=== PATIENT | male | born 1945 | race Caucasian/White ===

== ENCOUNTER 2019-02-10 09:41 | Inpatient (IN) | payer MEDICARE, SELFPAY ==
[2019-02-10] VITALS (10 sets, daily range): BP systolic 72–127; BP diastolic 38–66; PULSE 50–79; RESP 14–18; TEMP 36.5–36.7; O2SAT 90–100; BMI 34.9
--- NOTE | ~2019-02-10 | XR_ITS ---
EXAMINATION: XR chest 1V portable EXAM DATE: 02/10/2019 14:13 INDICATION: Cough. TECHNIQUE: Frontal and lateral projections of the chest obtained and reviewed. Correlation is made to CT 01/19/2019. FINDINGS: There are small amount of right infrahilar airspace disease, could be bronchopneumonia. Pl ease clinically correlate. The lungs are otherwise clear. There are no pleural effusions. The cardi omediastinal silhouette is within normal limits. There is no pneumothorax suspected. The bones and soft tissues are unremarkable. IMPRESSION: No acute cardiopulmonary findings. Reviewed, dictated and finalized at location A. R FAB TECHNICIAN
--- NOTE | ~2019-02-10 | CT_ITS ---
EXAMINATION: CT abdomen pelvis wo con DATE: 02/10/2019 13:50 INDICATION: Nausea and vomiting. TECHNIQUE: Computed tomography (CT) of the abdomen and pelvis was performed without intravenous contr ast. Automated exposure control and iterative reconstruction technique were employed. The dose-length product was 1293.80 mGy-cm. COMPARISON: CT abdomen and pelvis 03/17/2012, chest CT 09/11/2018 FINDINGS: The visualized portions of the lung bases demonstrate mild atelectasis. There are groundgla ss and airspace opacities in right middle lobe and right lower lobe, consistent with pneumonia. A pancho cified left lung nodule is consistent with old granulomatous disease. No pleural effusion. The heart size is normal. There are coronary artery calcifications. No pericardial effusion. Calcifications in the liver and spleen are consistent with old granulomatous disease. The gallbladder, pancreas, and ri ght adrenal gland are normal. There is a chronic 2.1 cm mass in left adrenal gland, consistent with a n adenoma. The kidneys are normal. There is no urolithiasis. The prostate is moderately enlarged. The re are no dilated loops of bowel. The appendix is normal. There is a 4.2 cm fusiform infrarenal aorti c aneurysm. There are no pathologically enlarged lymph nodes. There is no free intraperitoneal fluid. There is a healing anterior left sixth rib fracture. There is mild thoracolumbar spondylosis. IMPRESSION: 1. Mild pneumonia involving right middle lobe and right lower lobe. 2. 4.2 cm fusiform infrarenal aortic aneurysm. Reviewed, dictated and finalized at location A. STICS ASSISTANT
--- NOTE | 2019-02-10 09:52 | ECG_ITS ---
Measurements Intervals Dustin Rate: 53 P: 86 WY: 177 QRS: 79 QRSD: 133 T: 8 QT: 513 QTc: 482 Interpretive Statements SINUS BRADYCARDIA INTRAVENTRICULAR CONDUCTION DELAY BORDERLINE ST-T WAVE ABNORMALITY- INFERIOR LEADS PROLONGED QT INTERVAL ABNORMAL ECG Electronically Signed On 02-10-2019 10:56:40 GRADE CHECKER by Jhonny Davies D.O.
[2019-02-10] MEDS: SODIUM CHLORIDE 0.9% IV 1,000 ML 999 ML IV CONT ×2 (11:06→14:00)
--- NOTE | 2019-02-10 11:07 | PC.NURSE ---
NS 1 L BEL VO per Javy Chavez NP
--- NOTE | 2019-02-10 11:09 | PC.NURSE ---
pt. instructed not to get out of bed; rational given
[2019-02-10] MEDS: ONDANSETRON INJ 4 MG/2 ML VIAL IV PUSH (11:19)
[2019-02-10 11:27] LABS: Basophils Percent Auto 0.6 % (0.2-1.2); Eosinophils Absolute Auto 0.4 K/mm3 (0-0.3); Eosinophils Percent Auto 5.6 % (0-4.4); Hematocrit 40.5 % (42.0-52.0); Hemoglobin 12.9 g/dL (14.0-18.0); Immature Granulocyte Absolute 0.02 K/mm3 (0.00-0.031); Immature Granulocyte Percent A 0.3 % (0-0.5); Lymphocytes Absolute Auto 1.05 K/mm3 (0.9-3.2); Lymphocytes Percent Auto 16.3 % (18.3-44.2); Mean Corpuscular HGB Conc 31.9 g/dl (32-36); Mean Corpuscular Hemoglobin 27.3 pg (26-34); Mean Corpuscular Volume 85.8 fl (80-100); Mean Platelet Volume 11.6 fl (7.4-10.4); Monocytes Absolute Auto 0.6 K/mm3 (0.1-0.6); Monocytes Percent Auto 8.7 % (2.6-8.5); Neutrophils Absolute Auto 4.4 K/mm3 (1.3-6.7); Neutrophils Percent Auto 68.5 % (45.5-73.1); Platelet Count Result 172 k/mm3 (150-375); Red Blood Count 4.72 M/mm3 (4.6-6.20); Red Cell Distribution Width 13.3 % (11.5-14.5); White Blood Count 6.4 K/mm3 (4.5-10.0)
[2019-02-10 11:41] LABS: Alanine Aminotransferase 15 U/L (4-50); Albumin Level 4.3 g/dL (3.5-5.1); Alkaline Phosphatase 78 U/L (38-126); Aspartate Amino Transferase 26 U/L (17-59); Bilirubin,Total 0.4 mg/dL (0.2-1.3); Blood Urea Nitrogen 85 mg/dL (9-20); Calcium 8.8 mg/dL (8.4-10.2); Carbon Dioxide 35 mmol/L (22-30); Chloride 82 mmol/L (98-107); Estimated Glomerular Filt Rate 10; Glucose 115 mg/dL (75-110); Lipase 205 U/L (23-300); Potassium 3.4 mmol/L (3.4-5.0); Sodium 132 mmol/L (137-145)
--- NOTE | 2019-02-10 12:35 | ED.GENADULT ---
HPI - General Adult General Chief complaint: Unspecified <PARIS Bolanos - Last Filed: 02/10/19 14:27> Stated complaint: multiple complaints <PARIS Bolanos - Last Filed: 02/10/19 14:27> Time Seen by Provider: 02/10/19 11:02 <PARIS Bolanos - Last Filed: 02/10/19 14:27> History of Present Illness HPI narrative: Patient is a 73-year-old male who presents with multiple complaints. Patient reports nausea, vomiting, diarrhea for the past 3 weeks since discharge from [facility]. Patient reports he is unable to keep food or fluids down and decreased p.o. intake. He reports dehydration. He also reports dizziness and lightheaded intermittently. Patient reports discussing this with his PCP and was supposed to be set up with GI consult but has not at this time. Patient is hypotensive upon arrival, pale and cool. He denies taking erjz-rhh-xfslyuf medications for symptom relief. <PARIS Bolanos - Last Filed: 02/10/19 14:27> MD complaint: nausea, vomiting and diarrhea, intermittent dizziness, hypotension <PARIS Bolanos - Last Filed: 02/10/19 14:27> Onset (ago): week(s) (3) <PARIS Bolanos - Last Filed: 02/10/19 14:27> Associated symptoms: loss of appetite and weakness <PARIS Bolanos - Last Filed: 02/10/19 14:27> Treatments prior to arrival: none <PARIS Bolanos - Last Filed: 02/10/19 14:27> Related Data Home medications: Home Medications Medication Instructions Recorded Confirmed aspirin 81 mg tablet,delayed 81 mg PO DAILY 12/31/18 01/19/19 release krill 300 mg-omega 3 90 mg-dha 24 1 cap PO DAILY 12/31/18 01/19/19 mg-epa 50 uz-cvfatoq-yzjvd capsule atorvastatin 10 mg PO HS 01/19/19 01/19/19 doxazosin 8 mg PO HS 01/19/19 01/19/19 kbocnnlqbcq-wkxmzmrtg-twcqudat 1 ea INHALATION DAILY 01/19/19 01/19/19 [Trelegy Ellipta] vit A,C and K-nhrvsc-hkamcxrd 1 mg PO DAILY 01/19/19 01/19/19 [Healthy Eyes] amlodipine 5 mg tablet 5 mg PO DAILY tablet 02/02/19 02/02/19 <PARIS Bolanos - Last Filed: 02/10/19 14:27> Allergies/adverse reactions: Allergies Allergy/AdvReac Type Severity Reaction Status Date / Time Contrast Media Allergy Mild Unknown Uncoded 01/19/19 12:52 <PARIS Bolanos - Last Filed: 02/10/19 14:27> Review of Systems Review of Systems: Narrative: CONSTITUTIONAL: Denies fever, chills, or sweats. Reports generalized weakness EYES: Denies visual changes, redness, or discharge. ENT: Denies rhinorrhea, congestion, sore throat, or otalgia. CARDIOVASCULAR: Denies chest pain, palpitations, or edema. RESPIRATORY: Denies cough or dyspnea. GASTROINTESTINAL: Denies abdominal pain, reports nausea, vomiting, and diarrhea x3 weeks. GENITOURINARY: Denies dysuria or hematuria. SKIN: Denies rash or itching. MUSCULOSKELETAL: Denies back pain, joint pain, or myalgia. NEUROLOGIC: Denies headache, numbness, reports intermittent dizziness and weakness. PSYCHIATRIC: Denies anxiety or depression. <PARIS Bolanos - Last Filed: 02/10/19 14:27> [facility] Past Medical History Medical History: Medical History AAA (abdominal aortic aneurysm) Angina at rest Arthritis Asthma Back pain CAD (coronary artery disease) History of 1 cardiac stent distal RCA 2004 Carotid artery disease Carotid ultrasound 10/15/2018. Doppler suggests stenosis between 50 and 79%. Minimal plaquing on the left. Antegrade vertebral flow bilaterally. DM2 (diabetes mellitus, type 2) Hyperlipidemia Hypertension Kidney stones Passed a kidney stone on his own Myocardial infarct As 1 cardiac catheterization with 1 stent Peripheral artery disease Patient is to have stents in the near future. Pre-diabetes Ulcer UTI (urinary tract infection) <PARIS Bolanos - Last Filed: 02/10/19 14:27> Surgical History Surgical History: Surgical History (Reviewed 01/13
[2019-02-10 13:49] LABS: INR 1.1; Partial Thromboplastin Time 29.1 SECONDS (22.3-36.8); Prothrombin Time 13.8 Seconds (11.1-14.7)
[2019-02-10 15:17] LABS: Lactic Acid Reflex 0.7 mmol/L (0.7-2.1)
[2019-02-10 15:24] LABS: Add Urine Microscopic? YES; Appearance Urine Clear (Clear); Bilirubin Urine Negative (Negative); Blood Urine 1+ (Negative); Color Urine Yellow (Yellow); Glucose Urine UA Negative (Negative); Ketones Urine Negative (Negative); Leukocyte Esterase Ur Negative LEU/UL (Negative); Nitrate Urine Negative (Negative); Protein Urine 1+ mg/dL (Negative); RBC Urine 0-2 /hpf (0-2); Specific Grav Ur 1.016 (1.001-1.035); Squamous Epithelial Cell Urine Few /hpf (Few); Urobilinogen Urine Negative mg/dL (<2.0); WBC Urine 0-3 /hpf
[2019-02-10] MEDS: SODIUM CHLORIDE 0.9% IV 1,000 ML 125 ML IV CONT (16:21)
--- NOTE | 2019-02-10 17:13 | ADMGEN ---
This patient, Adán Lazaro, was admitted to [facility] Surg Room 312-01. Patient/family oriented to hospital policies and general routines including ID bracelet, bed and alarms, visiting hours, pain management, procedures, bathroom and other care routines, personal items, smoking policy, room service/diet, and visiting hours. Valuables list has been completed. Information on how to activate the Rapid Response Team has been discussed. Patient/Family are encouraged to report perceived risks to care and to ask questions if they do not understand what they are told or what they should do.
--- NOTE | 2019-02-10 18:11 | PM.CNNEP ---
Assessment and Plan Assessment and plan (1) Acute renal failure: Code(s): N17.9 - Acute kidney failure, unspecified Status: Acute Assessment and Plan: The patient has acute kidney injury. From 1.5 on the 10th of this month to 5.7 today. He has had nausea vomiting and diarrhea for the past 2 or 3 weeks. He has not held anything down. So I suspect that he is dehydrated. We discussed how long it took him to finally come get medical attention. He did not take any nonsteroidal anti-inflammatory agents. He did continue his valsartan which can enhance the rise in creatinine from any level of dehydration. His blood pressure is also somewhat low which would also be a contributing factor to the renal failure. He does have a history of kidney stones and so could have passed 1 and it could of lodged and blocked 1 kidney however he does not have any symptoms of this. In addition the CT scan did not show stones. He is on 2 new medications, clopidogrel and Sotalol but neither of these cause renal failure unless this is some sort of allergic reaction. However he does not have a rash or fever. And finally his CT scan shows pneumonia so this could be contributing to renal failure as well. So at this point I am going to get urine electrolytes and eosinophils. We will check a CBC with differential. He will continue his IV fluids. HIS Sotalol will have to be adjusted to be given every other day. This has not been prescribed however if it does it should be Q 48 hours. His valsartan should be held. (2) CKD (chronic kidney disease) stage 3, GFR 30-59 ml/min: Code(s): N18.3 - Chronic kidney disease, stage 3 (moderate) Status: Acute Assessment and Plan: The patient has chronic kidney disease. This is likely due to hypertension and vascular disease. We will check serology an immunofixation. (3) Community acquired pneumonia: Code(s): J18.9 - Pneumonia, unspecified organism Status: Acute Assessment and Plan: This is a diagnosis by CT scan. He is getting azithromycin and ceftriaxone. (4) Nausea & vomiting: Code(s): R11.2 - Nausea with vomiting, unspecified Status: Acute Assessment and Plan: The patient's symptoms have abated, similar to how it happened at [facility]. I am not sure why this is happening. His is at home and does not have the same symptoms. (5) Hypertension: Qualifiers: Hypertension type: essential hypertension Qualified Code(s): I10 - Essential (primary) hypertension Code(s): I10 - Essential (primary) hypertension Status: Chronic Assessment and Plan: Blood pressure is a bit low. Hold his antihypertensives. (6) Adrenal adenoma: Qualifiers: Laterality: unspecified laterality Qualified Code(s): D35.00 - Benign neoplasm of unspecified adrenal gland Code(s): D35.00 - Benign neoplasm of unspecified adrenal gland Status: Acute Assessment and Plan: He has hypertension plus an adrenal adenoma. When he recovers we should evaluate this but we do not have to do it now. The dehydration will confused the situation. (7) DM2 (diabetes mellitus, type 2): Qualifiers: Diabetes mellitus detention insulin use: without terminal supervisor use Diabetes mellitus complication status: with circulatory complication Diabetes mellitus complication detail: with other circulatory complications Qualified Code(s): E11.59 - Type 2 diabetes mellitus with other circulatory complications Code(s): E11.9 - Type 2 diabetes mellitus without complications Status: Chronic Assessment and Plan: Per hospitalists. (8) COPD (chronic obstructive pulmonary disease): Code(s): J44.9 - Chronic obstructive pulmonary disease, unspecified Status: Acute Assessment and Plan: He is getting supportive care (9) Personal history of nicotine dependence: Code(s): Z87
[2019-02-10 19:19] LABS: Creatinine Urine 109.8 mg/dL; Sodium Urine Random 45 meq/L; Total Protein Urine Random 46 mg/dL
[2019-02-10 19:43] LABS: Creatine Kinase 135 U/L (55-170)
[2019-02-10 19:51] LABS: Complement C3 134 mg/dL (88-165)
[2019-02-10 19:54] LABS: Erythrocyte Sedimentation Rate 63 mm/hr (0-20)
[2019-02-11] VITALS (10 sets, daily range): BP systolic 103–122; BP diastolic 58–66; PULSE 58–77; RESP 16–20; TEMP 36.7–36.9; O2SAT 95–97
[2019-02-11] MEDS: SOTALOL HCL 80 MG TABLET PO (00:06)
[2019-02-11] MEDS: ATORVASTATIN 10 MG TABLET PO ×2 (00:06→20:51)
[2019-02-11] MEDS: SODIUM CHLORIDE 0.9% IV 1,000 ML 125 ML IV CONT ×3 (02:16→20:49)
[2019-02-11 06:29] LABS: Basophils Percent Auto 0.5 % (0.2-1.2); Eosinophils Absolute Auto 0.3 K/mm3 (0-0.3); Eosinophils Percent Auto 5.1 % (0-4.4); Hematocrit 37.1 % (42.0-52.0); Hemoglobin 11.7 g/dL (14.0-18.0); Immature Granulocyte Absolute 0.02 K/mm3 (0.00-0.031); Immature Granulocyte Percent A 0.3 % (0-0.5); Lymphocytes Absolute Auto 1.06 K/mm3 (0.9-3.2); Mean Corpuscular HGB Conc 31.5 g/dl (32-36); Mean Corpuscular Hemoglobin 27.1 pg (26-34); Mean Corpuscular Volume 86.1 fl (80-100); Mean Platelet Volume 11.2 fl (7.4-10.4); Monocytes Absolute Auto 0.6 K/mm3 (0.1-0.6); Monocytes Percent Auto 9.5 % (2.6-8.5); Neutrophils Absolute Auto 3.9 K/mm3 (1.3-6.7); Neutrophils Percent Auto 66.6 % (45.5-73.1); Platelet Count Result 152 k/mm3 (150-375); Red Blood Count 4.31 M/mm3 (4.6-6.20); Red Cell Distribution Width 13.1 % (11.5-14.5); White Blood Count 5.9 K/mm3 (4.5-10.0)
[2019-02-11 06:52] LABS: Albumin Level 3.8 g/dL (3.5-5.1); Blood Urea Nitrogen 62 mg/dL (9-20); Calcium 8.1 mg/dL (8.4-10.2); Carbon Dioxide 31 mmol/L (22-30); Chloride 94 mmol/L (98-107); Estimated CRCL calculation 22 ml/min; Estimated Glomerular Filt Rate 17; Glucose 118 mg/dL (75-110); Phosphorus 3.7 mg/dL (2.5-4.5); Potassium 3.2 mmol/L (3.4-5.0); Sodium 136 mmol/L (137-145)
[2019-02-11] MEDS: DOXAZOSIN MESYLATE 4 MG TABLET 8 MG PO (09:42)
[2019-02-11] MEDS: PANTOPRAZOLE 40 MG TABLET PO ×2 (09:42→20:51)
[2019-02-11] MEDS: POTASSIUM CHLORIDE 20 MEQ PACKET (FOR LIQUID) 40 MEQ PO (09:42)
[2019-02-11] MEDS: CLOPIDOGREL BISULFATE 75 MG TABLET PO (09:42)
[2019-02-11] MEDS: OPTI-GEN TAB 1 TABLET PO (09:42)
[2019-02-11] MEDS: ASPIRIN 81 MG ENTERIC TABLET PO (09:42)
--- NOTE | 2019-02-11 12:11 | PM.IMHP ---
H&P: HPI History of Present Illness Chief complaint: Acute renal failure/community acquired pneumonia Narrative: Date of Service 02/11/19 Supervising physician for this history and physical is Dr. Antonio. Mr. Lazaro is a 73yo M with history of coronary artery disease with recent coronary stenting a few weeks ago, COPD, hypertension, peripheral vascular disease, abdominal aortic aneurysm who presented to the ED for evaluation of ongoing nausea and vomiting. He tells me his symptoms began about 3 months ago and he has been vomiting after almost each time he eats. He reports he vomits within about an hour after each meal for the last few months and has not been able to eat or drink much lately. He denies any chest pain or shortness of breath. He denies any hematemesis or coffee-ground appearing emesis. He denies hematochezia or melena. He reports diarrhea a few days ago that has resolved. He is not feeling dizzy today. He became concerned when he had not urinated over last 2 days and came to the ER for evaluation. He does not feel that his vomiting has gotten any worse, just not any better. He reports Dr. Jones was going to refer him to GI, but he had not gone yet. Cr noted to be 5.7 on arrival, up from 1.5 just on Jan 20. Lucero catheter was inserted in the ED and he was seen by Dr. Carcamo. CT abdomen/pelvis reveals 4.2 cm fusiform infrarenal aortic aneurysm, which he tells me his vascular surgeon, Dr. Rk Gomes, found a few months ago and is following. He reports feeling a little better today. He was seen here a few weeks ago due to chest pain and had some nonsustained V-tach, ultimately was transferred under the care of his established green end worker Dr. Koehler to [facility] where he received 3 new cardiac stents and evaluated by EP. He tells me that he believes he has an appointment in March, he is supposed to get shocked , what sounds like could be cardioversion or ablation, by the EP doctor he saw. Denies any chest pain or palpitations today. Review of Systems Review of Systems: Narrative: He complains of lack of urination over the last 2 days. Nausea and vomiting over the last few months, vomiting within 1 hour after almost every meal he eats. Twelve systems were reviewed with pertinent positives and negatives as per HPI. [facility] Past Medical History Medical History (Updated 02/11/19 @ 17:26 by Nisha Arreola PA-C) AAA (abdominal aortic aneurysm) Angina at rest Arthritis Asthma Atrial fibrillation with RVR Back pain CAD (coronary artery disease) History of 1 cardiac stent distal RCA 2004; 3 more stents Jan 2019. Carotid artery disease Carotid ultrasound 10/15/2018. Doppler suggests stenosis between 50 and 79%. Minimal plaquing on the left. Antegrade vertebral flow bilaterally. DM2 (diabetes mellitus, type 2) Hyperlipidemia Hypertension Kidney stones Passed a kidney stone on his own Myocardial infarct 2004 Nausea & vomiting Peripheral artery disease Pre-diabetes Ulcer UTI (urinary tract infection) Surgical History Surgical History (Updated 02/11/19 @ 12:21 by Nisha Arreola PA-C) H/O heart artery stent H/O sinus surgery History of bilateral cataract extraction History of cardiac cath Most recent stents a few weeks ago Jan 2019 at [facility] History of orthopedic surgery Left meniscus repair Left shoulder repair Family History Family History Mother Family history of malignant neoplasm of breast in first degree relative Father Acute myocardial infarction Family history of coronary artery disease, Onset Age: 67 Patient's father is , Onset Age: 67 Sibling Hypertension Cerebrovascular accident Social History Social History Social History: Patient continues to smoke about 3 cigars a day. His Audrey is his durable power admitted attorneys. He desires to be a f
--- NOTE | 2019-02-11 12:32 | WPDGICN ---
Assessment and Plan Assessment and plan (1) Nausea & vomiting: Qualifiers: Vomiting type: unspecified Vomiting Intractability: unspecified Qualified Code(s): R11.2 - Nausea with vomiting, unspecified Code(s): R11.2 - Nausea with vomiting, unspecified Status: Acute Assessment and Plan: it has been going on for several weeks, here also with TREVOR and dehydration. Will proceed with EGD tomorrow. His last colonoscopy was 2012- only diverticulosis. Continue with supportive care. (2) GERD (gastroesophageal reflux disease): Qualifiers: Esophagitis presence: esophagitis presence not specified Qualified Code(s): K21.9 - Gastro-esophageal reflux disease without esophagitis Code(s): K21.9 - Gastro-esophageal reflux disease without esophagitis Status: Acute Assessment and Plan: he has been on ppi for years. (3) Acute renal failure: Qualifiers: Acute renal failure type: unspecified Qualified Code(s): N17.9 - Acute kidney failure, unspecified Code(s): N17.9 - Acute kidney failure, unspecified Status: Acute Assessment and Plan: multifactorial (dehydration, recent cardiac cath, n/v, etc)- nephrology on board (4) Nonsustained ventricular tachycardia: Code(s): I47.2 - Ventricular tachycardia Status: Acute (5) AAA (abdominal aortic aneurysm): Qualifiers: Presence of rupture: without rupture Qualified Code(s): I71.4 - Abdominal aortic aneurysm, without rupture Code(s): I71.4 - Abdominal aortic aneurysm, without rupture Status: Chronic Assessment and Plan: his databases computer consultant is aware (6) CAD (coronary artery disease): Qualifiers: Coronary Disease-Associated Artery/Lesion type: [place] artery [place] vs. transplanted heart: [place] heart Associated angina: without angina Qualified Code(s): I25.10 - Atherosclerotic heart disease of [place] coronary artery without angina pectoris Code(s): I25.10 - Atherosclerotic heart disease of [place] coronary artery without angina pectoris Status: Chronic Assessment and Plan: stents about 3 weeks ago (7) DOMINICK (obstructive sleep apnea): Code(s): G47.33 - Obstructive sleep apnea (adult) (pediatric) Status: Acute GI Consult Note Consult date/time: 02/11/19 12:32 reason for consult: nausea and vomiting HPI: Adán Lazaro is a 73 year old male with history of coronary artery disease with recent coronary stenting at [facility] after he was found to have Vtach with lightheadedness - he was released 01/24/19 (had chronic occlusion), COPD, hypertension, peripheral vascular disease, abdominal aortic aneurysm. He came here with nausea and vomiting that has been going on for 4 weeks at least however he says that symptoms improved briefly when he was at [facility]. He has been vomiting after almost each time he eats after 20-30 minutes with reflux and burning sensation of throat. He has been taking PPI for several years though. He also was found to have new renal failure with creatinine 5, nephrology is involved, also a andrea was placed because lack of urination for 2 days. Also had intermittent loose stools but main complain is nausea with regurgitation. CT abdomen/pelvis reveals 4.2 cm fusiform infrarenal aortic aneurysm. Creatinine is better today. His last colonoscopy 03/[address] Srivastava showed diverticulosis, no polyps, normal TI. Review of Systems Constitutional: Constitutional: Reports fatigue Eyes: Eyes: Denies blurry vision ENT: Reports hearing normal, Denies headache(s) and Denies neck pain Cardiovascular: Cardiovascular: Denies chest pain and Denies dyspnea Respiratory: Respiratory: Denies dyspnea Gastrointestinal: Gastrointestinal: Reports dyspepsia, Reports heartburn and Reports nausea Genitourinary: Genitourinary: Reports oliguria Musculoskeletal: Musculoskeletal: Denies neck pain Integumentary/Breasts: Skin/Breast: Denies dry skin
--- NOTE | 2019-02-11 14:00 | PM.PNNEP ---
Progress Note: A&P Assessment and Plan (1) Acute renal failure: Qualifiers: Acute renal failure type: unspecified Qualified Code(s): N17.9 - Acute kidney failure, unspecified Code(s): N17.9 - Acute kidney failure, unspecified Status: Acute Assessment and Plan: The patient has acute kidney injury. From 1.5 on the 10th of this month to 5.7 today. His nausea and vomiting are gone. GI saw the patient and are going to do a scope tomorrow. Urine electrolytes not quite pre renal. CT showed no hydro. UA shows blood and protein. His CPK is normal. Will repeat this down the line. He has a Lucero catheter in. We can remove this after the 24 hour urine is done. His creatinine is improving with hydration. Will continue same. (2) CKD (chronic kidney disease) stage 3, GFR 30-59 ml/min: Code(s): N18.3 - Chronic kidney disease, stage 3 (moderate) Status: Acute Assessment and Plan: The patient has chronic kidney disease. This is probably due to hypertension Evaluation in process. (3) Community acquired pneumonia: Code(s): J18.9 - Pneumonia, unspecified organism Status: Acute Assessment and Plan: This is a diagnosis by CT scan. He is getting azithromycin and ceftriaxone. No cough or shortness of Breath (4) Nausea & vomiting: Qualifiers: Vomiting type: unspecified Vomiting Intractability: unspecified Qualified Code(s): R11.2 - Nausea with vomiting, unspecified Code(s): R11.2 - Nausea with vomiting, unspecified Status: Acute Assessment and Plan: To get a GI workup. (5) Hypertension: Qualifiers: Hypertension type: essential hypertension Qualified Code(s): I10 - Essential (primary) hypertension Code(s): I10 - Essential (primary) hypertension Status: Chronic Assessment and Plan: Blood pressure is better today off his antihypertensives. (6) Adrenal adenoma: Qualifiers: Laterality: unspecified laterality Qualified Code(s): D35.00 - Benign neoplasm of unspecified adrenal gland Code(s): D35.00 - Benign neoplasm of unspecified adrenal gland Status: Acute Assessment and Plan: He has hypertension plus an adrenal adenoma. When he recovers we should evaluate this but we do not have to do it now. The dehydration will confused the situation. (7) DM2 (diabetes mellitus, type 2): Qualifiers: Diabetes mellitus senior living insulin use: without local intermodal truck driver use Diabetes mellitus complication status: with circulatory complication Diabetes mellitus complication detail: with other circulatory complications Qualified Code(s): E11.59 - Type 2 diabetes mellitus with other circulatory complications Code(s): E11.9 - Type 2 diabetes mellitus without complications Status: Chronic Assessment and Plan: Per hospitalists. (8) COPD (chronic obstructive pulmonary disease): Code(s): J44.9 - Chronic obstructive pulmonary disease, unspecified Status: Acute Assessment and Plan: He is getting supportive care (9) Personal history of nicotine dependence: Code(s): Z87.891 - Personal history of nicotine dependence Status: Acute Assessment and Plan: He says he is going to stop smoking. He smokes mostly cigars. Subjective Date/time seen: 02/11/19 14:00 Interval history: Patient is feeling better.\ He has no nausea or vomiting. He ate some lunch today. Review of Systems Cardiovascular: Cardiovascular: Reports no additional cardiovascular complaints Respiratory: Respiratory: Reports no additional respiratory complaints Gastrointestinal: Gastrointestinal: Reports no additional gastrointestinal complaints Genitourinary: Genitourinary: Reports no additional male genitourinary complaints Exam Narrative: Exam Narrative: Well developed well-nourished in no acute distress Lungs clear Heart regular without
[2019-02-11 18:56] LABS: Glucose Point of Care 102 (65-105)
[2019-02-11 21:53] LABS: Glucose Point of Care 95 (65-105)
[2019-02-12] VITALS (11 sets, daily range): BP systolic 125–158; BP diastolic 66–86; PULSE 56–100; RESP 18–22; TEMP 36.6–37.2; O2SAT 92–99; BMI 34.9
[2019-02-12] MEDS: SODIUM CHLORIDE 0.9% IV 1,000 ML 125 ML IV CONT ×2 (05:51→20:33)
[2019-02-12 06:33] LABS: Basophils Percent Auto 0.6 % (0.2-1.2); Eosinophils Absolute Auto 0.3 K/mm3 (0-0.3); Eosinophils Percent Auto 5.4 % (0-4.4); Hematocrit 36.6 % (42.0-52.0); Hemoglobin 11.6 g/dL (14.0-18.0); Immature Granulocyte Absolute 0.05 K/mm3 (0.00-0.031); Lymphocytes Absolute Auto 1.02 K/mm3 (0.9-3.2); Lymphocytes Percent Auto 20.2 % (18.3-44.2); Mean Corpuscular HGB Conc 31.7 g/dl (32-36); Mean Corpuscular Hemoglobin 27.6 pg (26-34); Mean Corpuscular Volume 86.9 fl (80-100); Mean Platelet Volume 11.1 fl (7.4-10.4); Monocytes Absolute Auto 0.5 K/mm3 (0.1-0.6); Monocytes Percent Auto 9.5 % (2.6-8.5); Neutrophils Absolute Auto 3.2 K/mm3 (1.3-6.7); Neutrophils Percent Auto 63.3 % (45.5-73.1); Platelet Count Result 148 k/mm3 (150-375); Red Blood Count 4.21 M/mm3 (4.6-6.20); Red Cell Distribution Width 13.2 % (11.5-14.5)
[2019-02-12 06:55] LABS: Magnesium 1.6 mg/dL (1.6-2.3)
[2019-02-12 06:57] LABS: Albumin Level 3.8 g/dL (3.5-5.1); Blood Urea Nitrogen 34 mg/dL (9-20); Calcium 8.6 mg/dL (8.4-10.2); Carbon Dioxide 29 mmol/L (22-30); Chloride 98 mmol/L (98-107); Estimated CRCL calculation 35 ml/min; Estimated Glomerular Filt Rate 29; Glucose 102 mg/dL (75-110); Phosphorus 2.8 mg/dL (2.5-4.5); Potassium 3.4 mmol/L (3.4-5.0); Sodium 136 mmol/L (137-145)
[2019-02-12] MEDS: MAGNESIUM SULF 2 GM/WATER 50ML 2 GM/50 ML BAG IVPB (08:26)
[2019-02-12] MEDS: PANTOPRAZOLE 40 MG TABLET PO (08:29)
[2019-02-12] MEDS: DOXAZOSIN MESYLATE 4 MG TABLET 8 MG PO (08:30)
[2019-02-12 10:30] LABS: Glucose Point of Care 96 (65-105)
[2019-02-12 12:04] LABS: Glucose Point of Care 93 (65-105)
--- NOTE | 2019-02-12 12:05 | WPDANESEPPF ---
Anes - Initial Pre Proc Eval Procedure: Operation Date: 02/12/19 12:30 Proposed Procedures p Esophagogastroduodenoscopy - Uri Maritns MD Date/Time: 02/12/19 12:05 Surgeon: LUZ MARIA Leonardo Pre Op Diagnosis: Acute renal failure/community acquired pneumonia Patient Data Age: 73 Gender: M Height: 5 ft 11 in Weight: 113.7 kg Last Vital Signs Temp 36.6 C 02/12/19 06:00 Pulse 69 02/12/19 08:00 Resp 20 02/12/19 06:00 BP 142/74 H 02/12/19 06:00 Pulse Ox 94 02/12/19 06:00 Allergies Allergy/AdvReac Type Severity Reaction Status Date / Time Contrast Media Allergy Mild Unknown Uncoded 01/19/19 12:52 Home Medications Medication Instructions Recorded Confirmed Type aspirin 81 mg tablet,delayed 81 mg PO DAILY 12/31/18 02/10/19 History release krill 300 mg-omega 3 90 mg-dha 24 1 cap PO DAILY 12/31/18 02/10/19 History mg-epa 50 wz-kqrpdvg-gsxpd capsule metoprolol tartrate 100 mg tablet 100 mg PO BID #180 tablet 01/06/19 02/10/19 Rx pioglitazone 15 mg tablet 15 mg PO DAILY #90 tablet 01/06/19 02/10/19 Rx valsartan 320 mg tablet 320 mg PO DAILY #90 tablet 01/06/19 02/10/19 Rx albuterol sulfate 2.5 mg INHALATION Q4H PRN #180 ml 01/12/19 02/10/19 Rx atorvastatin 10 mg PO HS 01/19/19 02/10/19 History doxazosin 8 mg PO DAILY 01/19/19 02/10/19 History btifhgptwes-xkqjkxsuo-ydbbzomf 1 ea INHALATION DAILY 01/19/19 02/10/19 History [Trelegy Ellipta] vit A,C and W-ixhazt-nwhrziao 1 mg PO DAILY 01/19/19 02/10/19 History [Healthy Eyes] amlodipine 5 mg tablet 5 mg PO DAILY tablet 02/02/19 02/10/19 History clopidogrel 75 mg tablet 75 mg PO DAILY #90 tablet 02/02/19 02/10/19 Rx sotalol 80 mg tablet 80 mg PO BID #180 tablet 02/02/19 02/10/19 Rx albuterol sulfate [Ventolin HFA] 2 puff INHALATION Q4H PRN 02/10/19 02/10/19 History isosorbide mononitrate 120 mg PO DAILY 02/10/19 02/10/19 History pantoprazole 40 mg PO DAILY 02/10/19 02/10/19 History Laboratory Tests 02/11/19 02/11/19 02/12/19 18:42 21:50 05:04 WBC RBC Hgb Hct MCV MCH MCHC RDW Plt Count MPV Immature Gran % (Auto) Neut % (Auto) Lymph % (Auto) [place] % (Auto) Eos % (Auto) Baso % (Auto) Lymph # (Auto) [place] # (Auto) Eos # (Auto) Baso # (Auto) Abs Immat Gran (auto) Absolute Neuts (auto) Absolute Nucleated RBC Nucleated RBC % Sodium Potassium Chloride Carbon Dioxide BUN Creatinine Estim Creat Clear Calc Estimated GFR Glucose POC Capillary Glucose 102 mg/dl mg/dl 95 mg/dl mg/dl (65-105) (65-105) Calcium Phosphorus Magnesium Albumin Ur NILAM Interpret 24 hr Pending Free Ogilvie & Lambda LC Pending 02/12/19 02/12/19 02/12/19 06:09 06:09 06:09 WBC 5.0 K/mm3 K/mm3 (4.5-10.0) RBC 4.21 M/mm3 L M/mm3 (4.6-6.20) Hgb 11.6 g/dL L g/dL (14.0-18.0) Hct 36.6 % L % (42.0-52.0) MCV 86.9 fl fl (80-100) MCH 27.6 pg pg (26-34) MCHC 31.7 g/dl L g/dl (32-36) RDW 13.2 % % (11.5-14.5) Plt Count 148 k/mm3 L k/mm3 (150-375) MPV 11.1 fl H fl (7.4-10.4) Immature Gran % (Auto) 1.0 % H % (0-0.5) Neut % (Auto) 63.3 % % (45.5-73.1) Lymph % (Auto) 20.2 % % (18.3-44.2) [place] % (Auto) 9.5 % H % (2.6-8.5) Eos % (Auto) 5.4 % H % (0-4.4) Baso % (Auto) 0.6 % % (0.2-1.2) Lymph # (Auto) 1.02 K/mm3 K/mm3 (0.9-3.2) [place] # (Auto) 0.5 K/mm3 K/mm3 (0.1-0.6) Eos # (Au
[2019-02-12] MEDS: LACTATED RINGERS 1,000 ML 150 ML IV CONT (12:06)
[2019-02-12 12:22] LABS: Glucose Point of Care 108 (65-105)
--- NOTE | 2019-02-12 13:20 | PC.NURSE ---
[id number] patient to GI lab. iv saline locked
[2019-02-12 14:04] LABS: Glucose Point of Care 91 (65-105)
--- NOTE | 2019-02-12 14:18 | PC.NURSE ---
patient returning to floor per stretcher from GI Lab. orders received to continue to hold aspirin and plavix at this time. family at bedside
[2019-02-12] MEDS: OPTI-GEN TAB 1 TABLET PO (14:28)
[2019-02-12] MEDS: CLOPIDOGREL BISULFATE 75 MG TABLET PO (14:29)
--- NOTE | 2019-02-12 14:33 | P.PNIM_ITS ---
Progress Note: A&P Assessment and Plan (1) Duodenal stricture: Code(s): K31.5 - Obstruction of duodenum Status: Acute Assessment and Plan: TRANSFERRED TO [facility] FOR HIGHER LEVEL OF CARE - SEE TRANSFER SUMMARY * Patient reports that over the last several weeks, he vomits within 1 hour of each meal. Nausea is intermittent. * Discussed case with Dr Garcia. EGD revealed a duodenal stricture causing a partial gastric outlet obstruction. Etiology inflammation vs. malignancy? Biopsies obtained. Recommended surgical consult. * General surgery consulted - appreciate recommendations. I presume the patient may benefit from transfer to [facility], as his chemical laboratory scientist, computational physicist, and vascular surgeon are at [facility] and he recently underwent coronary stenting at [facility] 3 weeks ago. (2) Nausea & vomiting: Qualifiers: Vomiting Intractability: unspecified Vomiting type: unspecified Qualified Code(s): R11.2 - Nausea with vomiting, unspecified Code(s): R11.2 - Nausea with vomiting, unspecified Status: Acute Assessment and Plan: * See above. (3) Acute renal failure: Qualifiers: Acute renal failure type: unspecified Qualified Code(s): N17.9 - Acute kidney failure, unspecified Code(s): N17.9 - Acute kidney failure, unspecified Status: Acute Assessment and Plan: * Acute renal failure on CKD stage 3. BUN and creatinine 85, 5.7 respectively on arrival. This is a significant change comapred to 24 and 1.5 just less than 3 weeks ago. Patient reported lack of urination x 2 days on arrival. Lcuero cather placed and can be removed after 24 hr urine collection is complete. * Now with adequate UOP today. Possible contributing factors include dehydration from vomiting/ hypovolemia and hypoperfusion given his concomitant hypotension, ? recent instrumentation/contrast PCI at [facility]. * Cr further improved today with IV hydration. Continue IV fluids. Dr. Carcamo consulted and appreciate his input. (4) Community acquired pneumonia: Qualifiers: Laterality: right Lung location: lower lobe of lung Qualified Code(s): J18.9 - Pneumonia, unspecified organism Code(s): J18.9 - Pneumonia, unspecified organism Status: Acute Assessment and Plan: * Noted on CT scan and was started on IV antibiotics in the ED. Patient does not seem to have any respiratory symptoms. (5) GERD (gastroesophageal reflux disease): Qualifiers: Esophagitis presence: esophagitis presence not specified Qualified Code(s): K21.9 - Gastro-esophageal reflux disease without esophagitis Code(s): K21.9 - Gastro-esophageal reflux disease without esophagitis Status: Acute Assessment and Plan: * Dr Jones's office note from 02/02 suggests he was going to increase omeprazole from daily to BID. * protonix BID IV. (6) CAD (coronary artery disease): Qualifiers: Associated angina: without angina Coronary Disease-Associated Artery/Lesion type: [place] artery [place] vs. transplanted heart: [place] heart Qualified Code(s): I25.10 - Atherosclerotic heart disease of [place] coronary artery without angina pectoris Code(s): I25.10 - Atherosclerotic heart disease of [place] coronary artery without angina pectoris Status: Chronic Assessment and Plan: * Recent coronary stenting x3 at [facility] 3 weeks ago. Taking dual anti-platelet therapy with ASA and Plavix. * His cardiologi
--- NOTE | 2019-02-12 14:33 | PM.IMPN ---
Progress Note: A&P Assessment and Plan (1) Duodenal stricture: Code(s): K31.5 - Obstruction of duodenum Status: Acute Assessment and Plan: TRANSFERRED TO [facility] FOR HIGHER LEVEL OF CARE - SEE TRANSFER SUMMARY Patient reports that over the last several weeks, he vomits within 1 hour of each meal. Nausea is intermittent. Discussed case with Dr Garcia. EGD revealed a duodenal stricture causing a partial gastric outlet obstruction. Etiology inflammation vs. malignancy? Biopsies obtained. Recommended surgical consult. General surgery consulted - appreciate recommendations. I presume the patient may benefit from transfer to [facility], as his foot piece assembler, call center analyst, and vascular surgeon are at [facility] and he recently underwent coronary stenting at [facility] 3 weeks ago. (2) Nausea & vomiting: Qualifiers: Vomiting Intractability: unspecified Vomiting type: unspecified Qualified Code(s): R11.2 - Nausea with vomiting, unspecified Code(s): R11.2 - Nausea with vomiting, unspecified Status: Acute Assessment and Plan: See above. (3) Acute renal failure: Qualifiers: Acute renal failure type: unspecified Qualified Code(s): N17.9 - Acute kidney failure, unspecified Code(s): N17.9 - Acute kidney failure, unspecified Status: Acute Assessment and Plan: Acute renal failure on CKD stage 3. BUN and creatinine 85, 5.7 respectively on arrival. This is a significant change comapred to 24 and 1.5 just less than 3 weeks ago. Patient reported lack of urination x 2 days on arrival. Lucero cather placed and can be removed after 24 hr urine collection is complete. Now with adequate UOP today. Possible contributing factors include dehydration from vomiting/ hypovolemia and hypoperfusion given his concomitant hypotension, ? recent instrumentation/contrast PCI at [facility]. Cr further improved today with IV hydration. Continue IV fluids. Dr. Carcamo consulted and appreciate his input. (4) Community acquired pneumonia: Qualifiers: Laterality: right Lung location: lower lobe of lung Qualified Code(s): J18.9 - Pneumonia, unspecified organism Code(s): J18.9 - Pneumonia, unspecified organism Status: Acute Assessment and Plan: Noted on CT scan and was started on IV antibiotics in the ED. Patient does not seem to have any respiratory symptoms. (5) GERD (gastroesophageal reflux disease): Qualifiers: Esophagitis presence: esophagitis presence not specified Qualified Code(s): K21.9 - Gastro-esophageal reflux disease without esophagitis Code(s): K21.9 - Gastro-esophageal reflux disease without esophagitis Status: Acute Assessment and Plan: Dr Jones's office note from 02/02 suggests he was going to increase omeprazole from daily to BID. protonix BID IV. (6) CAD (coronary artery disease): Qualifiers: Associated angina: without angina Coronary Disease-Associated Artery/Lesion type: [place] artery [place] vs. transplanted heart: [place] heart Qualified Code(s): I25.10 - Atherosclerotic heart disease of [place] coronary artery without angina pectoris Code(s): I25.10 - Atherosclerotic heart disease of [place] coronary artery without angina pectoris Status: Chronic Assessment and Plan: Recent coronary stenting x3 at [facility] 3 weeks ago. Taking dual anti-platelet therapy with ASA and Plavix. His foot piece assembler is Dr. Koehler at [facility] and he also recently saw EP there due to V-tach. Continue his sotalol Q 48 hours due to renal function. Stable, no chest pain. Will monitor closely. (7) Aneurysm of infrarenal abdominal aorta: Code(s): I71.4 - Abdominal aortic aneurysm, without rupture Status: Acute Assessm
[2019-02-12 16:03] LABS: Glucose Point of Care 87 (65-105)
--- NOTE | 2019-02-12 16:44 | PM.PNNEP ---
Progress Note: A&P Assessment and Plan (1) Acute renal failure: Qualifiers: Acute renal failure type: unspecified Qualified Code(s): N17.9 - Acute kidney failure, unspecified Code(s): N17.9 - Acute kidney failure, unspecified Status: Acute Assessment and Plan: The patient has acute kidney injury. His nausea and vomiting are gone. GI seeing the patient. Endoscopy report is pending Urine electrolytes not quite pre renal. CT showed no hydro. UA shows blood and protein. His CPK is normal. Will repeat this down the line. Lucero catheter is out. Repeat UA in a couple of days His creatinine is improving with hydration. Long discussion with the patient and Will continue IV fluids. He is on clear liquids. (2) CKD (chronic kidney disease) stage 3, GFR 30-59 ml/min: Code(s): N18.3 - Chronic kidney disease, stage 3 (moderate) Status: Acute Assessment and Plan: The patient has chronic kidney disease. Baseline creatinine is 1.5 UA shows blood and protein. Blood might be from the Lucero. Complements are okay so far. This is probably due to hypertension Remainder of evaluation in process. (3) Community acquired pneumonia: Qualifiers: Laterality: right Lung location: lower lobe of lung Qualified Code(s): J18.9 - Pneumonia, unspecified organism Code(s): J18.9 - Pneumonia, unspecified organism Status: Acute Assessment and Plan: This is a diagnosis by CT scan. He is getting azithromycin and ceftriaxone. No cough or shortness of Breath or cough (4) Nausea & vomiting: Qualifiers: Vomiting type: unspecified Vomiting Intractability: unspecified Qualified Code(s): R11.2 - Nausea with vomiting, unspecified Code(s): R11.2 - Nausea with vomiting, unspecified Status: Acute Assessment and Plan: Evaluation in progress (5) Hypertension: Qualifiers: Hypertension type: essential hypertension Qualified Code(s): I10 - Essential (primary) hypertension Code(s): I10 - Essential (primary) hypertension Status: Chronic Assessment and Plan: Blood pressure is a bit high. Will restart his amlodipine (6) Adrenal adenoma: Qualifiers: Laterality: unspecified laterality Qualified Code(s): D35.00 - Benign neoplasm of unspecified adrenal gland Code(s): D35.00 - Benign neoplasm of unspecified adrenal gland Status: Acute Assessment and Plan: He has hypertension plus an adrenal adenoma. When he recovers we should evaluate this but we do not have to do it now. (7) DM2 (diabetes mellitus, type 2): Qualifiers: Diabetes mellitus longwall headgate operator insulin use: without longwall headgate operator use Diabetes mellitus complication status: with circulatory complication Diabetes mellitus complication detail: with other circulatory complications Qualified Code(s): E11.59 - Type 2 diabetes mellitus with other circulatory complications Code(s): E11.9 - Type 2 diabetes mellitus without complications Status: Chronic Assessment and Plan: Per hospitalists. (8) COPD (chronic obstructive pulmonary disease): Qualifiers: COPD type: unspecified COPD Qualified Code(s): J44.9 - Chronic obstructive pulmonary disease, unspecified Code(s): J44.9 - Chronic obstructive pulmonary disease, unspecified Status: Acute Assessment and Plan: He is getting supportive care (9) Personal history of nicotine dependence: Code(s): Z87.891 - Personal history of nicotine dependence Status: Acute Assessment and Plan: He says he is going to stop smoking. He smokes mostly cigars. Subjective Date/time seen: 02/12/19 16:44 Interval history: Patient is feeling better. He had a scope today. This is pending but the patient said he had some sort of stenosis. He has no nausea. He is on clear liquids. Review of S
[2019-02-12] MEDS: ATORVASTATIN 10 MG TABLET PO (20:37)
[2019-02-12] MEDS: PANTOPRAZOLE SODIUM IV 40 MG VIAL IV PUSH (20:37)
[2019-02-12 21:20] LABS: Glucose Point of Care 99 (65-105)
[2019-02-12 21:47] LABS: Add Urine Microscopic? YES; Appearance Urine Clear (Clear); Bilirubin Urine Negative (Negative); Blood Urine Negative (Negative); Color Urine Yellow (Yellow); Glucose Urine UA 1+ mg/dL (Negative); Ketones Urine Trace mg/dL (Negative); Leukocyte Esterase Ur Negative LEU/UL (NEGATIVE); Nitrate Urine Negative (Negative); Protein Urine 2+ mg/dL (Negative); RBC Urine 0-2 /hpf (0-2); Specific Grav Ur 1.014 (1.001-1.035); Squamous Epithelial Cell Urine Rare /hpf (Few); Urobilinogen Urine Negative mg/dL (<2.0); WBC Urine 0-3 /hpf (0-3)
--- NOTE | 2019-02-12 23:13 | PM.TDS ---
Transfer Discharge Sum: Prov Provider Date of admission: 02/10/19 15:55 Primary care physician: Mg Jones MD Admitting clinician: Dwight Antonio MD Consults: 02/10/19 15:56 Consult to Physician Routine Comment: Consulting Provider: Enio Carcamo Reason for consultation: Acute renal failure Has provider been notified: Yes 02/11/19 11:30 Consult to Physician Routine Comment: Consulting Provider: Uri Martins Reason for consultation: Vomiting x 3 months Has provider been notified: Yes 02/12/19 14:13 Consult to Physician Routine Comment: Consulting Provider: Km Galvan call center rn/MD group to consult: General Surgery Reason for consultation: Duodenal stricture with partial gastric outlet obstruction Has provider been notified: Yes DS: Diagnosis Admitting Diagnosis Admitting Diagnosis: Acute kidney failure, unspecified Vomiting Discharge Diagnosis (1) Duodenal stricture: Code(s): K31.5 - Obstruction of duodenum Status: Acute Assessment and Plan: Patient reports that over the last several weeks, he vomits within 1 hour of each meal. Nausea is intermittent. Discussed case with Dr Garcia. EGD revealed a duodenal stricture causing a partial gastric outlet obstruction. Etiology inflammation vs. malignancy? Biopsies were obtained. Dr. Garcia recommended a surgical consult. Discussed case with General surgery, who recommended he may require duodenal stenting which we are not able to perform at our facility. As the patient just underwent coronary stenting under the care of his lead ruby on rails developer, Dr. Koehler at [facility] 3 weeks ago, it was felt that he would benefit most from transfer to [facility] for higher level of care. His aspirin and plavix were continued. Discussed case with Dr. Jeremiah Jennings, General Surgery at [facility] 02/12/191899. Dr. Jennings agreed to see the patient in consultation with admission to the hospitalist. Discussed case with Lilia Whittington, LEILANI for Dr. Denzel Gurrola, Hospitalist 1914 who accepted the patient in transfer. (2) Nausea & vomiting: Qualifiers: Vomiting type: unspecified Vomiting Intractability: unspecified Qualified Code(s): R11.2 - Nausea with vomiting, unspecified Code(s): R11.2 - Nausea with vomiting, unspecified Status: Acute Assessment and Plan: See above. (3) Acute renal failure: Qualifiers: Acute renal failure type: unspecified Qualified Code(s): N17.9 - Acute kidney failure, unspecified Code(s): N17.9 - Acute kidney failure, unspecified Status: Acute Assessment and Plan: Acute renal failure on CKD stage 3. BUN and creatinine 85, 5.7 respectively on arrival. This is a significant change comapred to 24 and 1.5 just less than 3 weeks ago. Patient reported lack of urination x 2 days on arrival. Lucero cather placed, 24 hour urine was collected, and catheter was removed. Possible contributing factors include dehydration from vomiting/ hypovolemia and hypoperfusion given his concomitant hypotension, ? recent instrumentation/contrast PCI at [facility]. Cr further improved today with IV hydration. Nephrology was consulted, Dr. Carcamo. (4) Community acquired pneumonia: Qualifiers: Laterality: right Lung location: lower lobe of lung Qualified Code(s): J18.9 - Pneumonia, unspecified organism Code(s): J18.9 - Pneumonia, unspecified organism Status: Acute Assessment and Plan: Noted on CT scan and was started on IV antibiotics in the ED. Patient does not seem to have any respiratory symptoms but given all his vomiting, could not exclude aspiration. (5) GERD (gastroesophageal reflux disease): Qualifiers: Esophagitis presence: esophagitis presence not specified Qualified Code(s): K21.9 - Gastro-esophageal refl
[2019-02-13 10:34] LABS: Complement Total CH50 >60 U/mL (31-60)
[2019-02-14 14:45] LABS: Kappa\\Lambda Light Chains 1.68 (0.26-1.65)
[2019-02-15 22:17] LABS: Albumin 3.2 g/dL (3.8-4.8); Alpha 1 Globulin 0.4 g/dL (0.2-0.3); Beta 1 Globulin 0.4 g/dL (0.4-0.6); Gamma Globulin 0.7 g/dL (0.8-1.7); Protein, Total 5.9 g/dL (6.1-8.1)
== END 2019-02-12 23:19 | disposition short-term general hospital (02) | DRG 683 ==
LOC: ANHED 16:04 → ANH3MEDSUR 16:14
PROVIDERS: Internal Medicine Gastroenterology; Internal Medicine Nephrology; Nurse Practitioner; Admitting Provider Internal Medicine; Emergency Provider Emergency Medicine; PCP Internal Medicine; Visit Provider Physician Assistant
PROC: 0DJ08ZZ Inspection of Upper Intestinal Tract, Via Natural or Artificial Opening Endoscopic (ICD-10-PCS; CPT 43235; principal; 2019-02-12 12:30)
DX: N17.9 Acute kidney failure, unspecified (principal); K31.5 Obstruction of duodenum; K22.10 Ulcer of esophagus without bleeding; K21.0 Gastro-esophageal reflux disease with esophagitis; K44.9 Diaphragmatic hernia without obstruction or gangrene; R11.2 Nausea with vomiting, unspecified; K31.84 Gastroparesis; I12.9 Hypertensive chronic kidney disease with stage 1 through stage 4 chronic kidney disease, or unspecified chronic kidney disease; N18.3 Chronic kidney disease, stage 3 (moderate); I25.10 Atherosclerotic heart disease of native coronary artery without angina pectoris; J44.9 Chronic obstructive pulmonary disease, unspecified; E11.51 Type 2 diabetes mellitus with diabetic peripheral angiopathy without gangrene; I73.9 Peripheral vascular disease, unspecified; I71.4 Abdominal aortic aneurysm, without rupture; D35.00 Benign neoplasm of unspecified adrenal gland; M19.90 Unspecified osteoarthritis, unspecified site; E78.5 Hyperlipidemia, unspecified; E11.22 Type 2 diabetes mellitus with diabetic chronic kidney disease; E86.0 Dehydration; G47.33 Obstructive sleep apnea (adult) (pediatric); F17.290 Nicotine dependence, other tobacco product, uncomplicated; Z95.5 Presence of coronary angioplasty implant and graft; I25.2 Old myocardial infarction; Z79.82 Long term (current) use of aspirin; Z98.42 Cataract extraction status, left eye; Z98.41 Cataract extraction status, right eye; Z79.02 Long term (current) use of antithrombotics/antiplatelets; E66.9 Obesity, unspecified; Z68.35 Body mass index [BMI] 35.0-35.9, adult
CPT/HCPCS: 36415; 71045; 74176; 80053; 80069; 81001; 82550; 82570; 83605; 83690; 83735; 83883; 84155; 84156; 84165; 84300; 85025; 85610; 85652; 85730; 86038; 86160; 86162; 86334; 86335; 87040; 87081; 88305; 93005; 96361; 96374; 96375; 99291; A9270; C9113; J0696; J2405; J2704; J3475; J7030; J7120

== ENCOUNTER 2019-06-20 08:09 | Outpatient (CLI) | payer MEDICARE, SELFPAY ==
[2019-06-20 08:30] LABS: Add Urine Microscopic? YES; Appearance Urine Clear (Clear); Bacteria Urine Trace /hpf; Bilirubin Urine 2+ (Negative); Blood Urine Negative (Negative); Color Urine Amber (Yellow); Glucose Urine UA Negative (Negative); Ketones Urine Negative (Negative); Leukocyte Esterase Ur Negative LEU/UL (Negative); Mucus Urine Rare /lpf; Nitrate Urine Negative (Negative); Protein Urine 2+ mg/dL (Negative); RBC Urine 0-2 /hpf (0-2); Squamous Epithelial Cell Urine Moderate /hpf (Few); WBC Urine 0-3 /hpf
== END 2019-06-20 08:10 | disposition home or self-care (01) ==
LOC: ANHLAB 08:11
PROVIDERS: PCP Internal Medicine; Visit Provider Internal Medicine
DX: R31.9 Hematuria, unspecified (principal)
CPT/HCPCS: 81001

== ENCOUNTER 2019-06-22 12:16 | Outpatient (CLI) | payer MEDICARE, SELFPAY ==
[2019-06-22 12:52] LABS: Alanine Aminotransferase 204 U/L (4-50); Albumin Level 4.4 g/dL (3.5-5.1); Alkaline Phosphatase 490 U/L (38-126); Aspartate Amino Transferase 145 U/L (17-59); Bilirubin,Total 3.7 mg/dL (0.2-1.3); Blood Urea Nitrogen 17 mg/dL (9-20); Calcium 9.6 mg/dL (8.4-10.2); Carbon Dioxide 28 mmol/L (22-30); Chloride 104 mmol/L (98-107); Estimated Glomerular Filt Rate 50; Glucose 91 mg/dL (75-110); Potassium 4.4 mmol/L (3.4-5.0); Sodium 140 mmol/L (137-145)
== END 2019-06-22 12:17 | disposition home or self-care (01) ==
PROVIDERS: PCP Internal Medicine; Visit Provider Internal Medicine
DX: R82.2 Biliuria (principal)
CPT/HCPCS: 36415; 80053